=== PATIENT | female | born 1990 | race Caucasian/White ===

== ENCOUNTER 2016-09-05 14:12 | Emergency (ER) | payer OTHER ==
[2016-09-05 14:17] VITALS: BP 120/73; BMI 25.7
[2016-09-05 14:52] LABS: BILIRUBIN,URINE NEGATIVE (NEGATIVE); BLOOD/HEMOGLOBIN,URINE NEGATIVE (NEGATIVE); GLUCOSE, URINE NEGATIVE (NEGATIVE); KETONES,URINE NEGATIVE (NEGATIVE); LEUKOCYTE ESTERASE ,URINE NEGATIVE (NEGATIVE); NITRITES,URINE NEGATIVE (NEGATIVE); PROTEIN,URINE NEGATIVE (NEGATIVE); UROBILINOGEN,URINE NORMAL (NORMAL)
[2016-09-05 14:54] LABS: APPEARANCE,URINE CLEAR (CLEAR); COLOR,URINE PALE YELLOW (YELLOW)
== END 2016-09-05 15:14 | disposition home or self-care (01) ==
LOC: ER 14:34
DX: M54.5 Low back pain (principal); Z3A.30 30 weeks gestation of pregnancy
CPT/HCPCS: 81003; 99284

== ENCOUNTER → 2016-11-01 | Outpatient (CLI) | payer OTHER ==
[2016-11-01 10:08] LABS: BASOPHILS % (AUTO) 0.3 % (0.2-1.0); EOSINOPHILS % (AUTO) 0.6 % (0.9-2.9); HEMATOCRIT 33.4 % (36.0-47.0); HEMOGLOBIN 11.1 g/dL (12.0-16.0); LYMPHOCYTES # (AUTO) 1.9 X10^3/uL (1.3-2.9); LYMPHOCYTES % (AUTO) 27.9 % (21.0-51.0); MEAN CORPUSCULAR HEMOGLOBIN 27.6 pg (27.0-34.0); MEAN CORPUSCULAR HGB CONC 33.2 g/dL (33.0-35.0); MEAN CORPUSCULAR VOLUME 83.2 fL (80.0-100.0); MEAN PLATELET VOLUME 9.8 fL (7.4-11.0); MONOCYTES # (AUTO) 0.7 x10^3/uL (0.3-0.8); MONOCYTES % (AUTO) 9.9 % (0.0-13.0); NEUTROPHILS # (AUTO) 4.1 x10^3/uL (2.2-4.8); NEUTROPHILS % (AUTO) 61.3 % (42.0-75.0); PLATELET COUNT 119 X10^3/uL (150.0-450.0); RED BLOOD COUNT 4.02 X10^6/uL (3.5-5.4); RED CELL DISTRIBUTION WIDTH 16.8 % (11.6-16.5); WHITE BLOOD COUNT 6.7 X10^3/uL (3.6-10.0)
[2016-11-01 10:11] LABS: BILIRUBIN,URINE NEGATIVE (NEGATIVE); BLOOD/HEMOGLOBIN,URINE NEGATIVE (NEGATIVE); GLUCOSE, URINE NEGATIVE (NEGATIVE); KETONES,URINE NEGATIVE (NEGATIVE); LEUKOCYTE ESTERASE ,URINE NEGATIVE (NEGATIVE); NITRITES,URINE NEGATIVE (NEGATIVE); PROTEIN,URINE NEGATIVE (NEGATIVE); UROBILINOGEN,URINE NORMAL (NORMAL)
[2016-11-01 10:15] LABS: BLOOD UREA NITROGEN 7 mg/dL (7-18); CALCIUM 8.7 mg/dL (8.5-10.1); CARBON DIOXIDE 23.6 mmol/L (21-32); CHLORIDE 103 mmol/L (98-107); CREATININE 0.54 mg/dL (0.55-1.02); SODIUM 136 mmol/L (136-145); eGFR BLACK RACES > 60 (>60); eGFR NON BLACK RACES > 60 (>60)
[2016-11-01 10:19] LABS: APPEARANCE,URINE CLEAR (CLEAR); BACTERIA,URINE TRACE /HPF (NEGATIVE); COLOR,URINE YELLOW (YELLOW); RBC,URINE 0-2 /HPF (NEGATIVE); SQUAMOUS EPITHELIAL CELL,UR NEGATIVE /HPF (NEGATIVE)
== END ==
LOC: LAB 09:14
PROVIDERS: ATTEND Specialist
DX: Z01.818 Encounter for other preprocedural examination (principal); Z01.812 Encounter for preprocedural laboratory examination; Z34.83 Encounter for supervision of other normal pregnancy, third trimester
CPT/HCPCS: 36415; 80048; 81001; 85025; 85610; 85730; 86592; 86850; 86900; 86901; 87086

== ENCOUNTER 2016-11-02 06:19 | Inpatient (IN) | payer OTHER ==
[2016-11-02] MEDS ORDERED: ANCEF VIAL 1 GM ONE ×2 (06:40→07:21)
[2016-11-02] MEDS ORDERED: LR 1000 ML IV 1,000 ML IV ONE ×2 (06:40→07:36)
[2016-11-02] MEDS ORDERED: NS 50 ML IV + SPIKE MINIBAG* 50 ML IV ONE ×2 (06:40→07:21)
[2016-11-02] MEDS ORDERED: DURAMORPH ONE (06:51)
[2016-11-02] MEDS ORDERED: NS IRRIGATION 1000 ML 1,000 ML IR ONE (08:20)
[2016-11-02 08:28] LABS: BILIRUBIN,URINE NEGATIVE (NEGATIVE); BLOOD/HEMOGLOBIN,URINE NEGATIVE (NEGATIVE); GLUCOSE, URINE NEGATIVE (NEGATIVE); KETONES,URINE NEGATIVE (NEGATIVE); LEUKOCYTE ESTERASE ,URINE NEGATIVE (NEGATIVE); NITRITES,URINE NEGATIVE (NEGATIVE); PROTEIN,URINE NEGATIVE (NEGATIVE); UROBILINOGEN,URINE NORMAL (NORMAL)
[2016-11-02 08:36] LABS: APPEARANCE,URINE CLEAR (CLEAR); BACTERIA,URINE NEGATIVE /HPF (NEGATIVE); COLOR,URINE YELLOW (YELLOW); RBC,URINE 0-2 /HPF (NEGATIVE); SQUAMOUS EPITHELIAL CELL,UR RARE /HPF (NEGATIVE)
[2016-11-02] MEDS ORDERED: DILAUDID INJ IVP PRN (09:01)
[2016-11-02] MEDS ORDERED: D5 1/2 NS 1000 ML 1,000 ML IV SCH (09:01)
[2016-11-02] MEDS ORDERED: ANCEF VIAL 1 GM 1 GM in NS 50 ML IV + SPIKE MINIBAG* 50 ML IV PRN (09:01)
[2016-11-02] MEDS ORDERED: REGLAN INJ 10 MG VIAL IVP PRN ×2 (09:01→09:57)
[2016-11-02] MEDS ORDERED: BENADRYL INJ 50 MG VIAL IVP PRN ×2 (09:01→09:57)
[2016-11-02] MEDS ORDERED: ZOFRAN INJ 4 MG VIAL IVP PRN ×2 (09:01→09:57)
[2016-11-02] MEDS ORDERED: PHENERGAN INJ 25 MG IVP PRN (09:01)
[2016-11-02] MEDS ORDERED: ADACEL TDaP IM ONE (09:57)
[2016-11-02] MEDS ORDERED: TORADOL 30 MG VIAL IVP PRN (09:57)
[2016-11-02] MEDS ORDERED: PERCOCET TAB 5/325 MG PO PRN (09:57)
[2016-11-02] MEDS ORDERED: NARCAN INJ IVP PRN (09:57)
[2016-11-02] MEDS ORDERED: D5 1/2 NS 1000 ML 1,000 ML with PITOCIN 20 UNITS IV SCH ×2 (10:00)
[2016-11-02] MEDS ORDERED: VERSED ONE (14:40)
[2016-11-02] MEDS ORDERED: DIPRIVAN VIAL ONE (14:40)
[2016-11-02] MEDS ORDERED: PITOCIN ONE (14:40)
[2016-11-02] MEDS: ZANTAC PO SCH (20:17)
[2016-11-02] MEDS: MYLICON TAB 80 MG CHEW PO PRN (20:17)
[2016-11-03 05:08] LABS: HEMATOCRIT 26.9 % (36.0-47.0)
[2016-11-03] MEDS ORDERED: MOTRIN TAB 800 MG PO PRN (07:17)
[2016-11-03] MEDS: PERCOCET TAB 5/325 MG PO PRN ×3 (08:51→20:38)
[2016-11-03] MEDS: ZANTAC PO SCH ×2 (08:52→20:39)
[2016-11-03] MEDS: FERROUS SULFATE PO SCH ×2 (08:52→17:59)
[2016-11-03] MEDS: COLACE CAP 100 MG PO SCH ×2 (08:52→20:39)
[2016-11-03] MEDS: PRENATAL PLUS PO SCH (08:52)
[2016-11-03] MEDS: BACTROBAN OINT TOP SCH ×2 (14:59→22:49)
[2016-11-03] MEDS: MYLICON TAB 80 MG CHEW PO PRN (20:39)
[2016-11-04] MEDS: BACTROBAN OINT TOP SCH (05:36)
[2016-11-04] MEDS: FERROUS SULFATE PO SCH (06:02)
[2016-11-04] MEDS: ZANTAC PO SCH (09:04)
[2016-11-04] MEDS: PRENATAL PLUS PO SCH (09:04)
[2016-11-04] MEDS: COLACE CAP 100 MG PO SCH (09:04)
[2016-11-04 10:27] VITALS: BP 108/51
== END 2016-11-04 10:55 | disposition home or self-care (01) | DRG 766 ==
LOC: LD 06:19 → MED/SURG 09:21
PROVIDERS: ADMIT Specialist; ATTEND Specialist
PROC: 0UB70ZZ Excision of Bilateral Fallopian Tubes, Open Approach (ICD-10-PCS; 2016-11-02)
PROC: 3E0234Z Introduction of Serum, Toxoid and Vaccine into Muscle, Percutaneous Approach (ICD-10-PCS; 2016-11-02)
PROC: 10D00Z1 Extraction of Products of Conception, Low, Open Approach (ICD-10-PCS; principal; 2016-11-02 07:30)
DX: O34.211 Maternal care for low transverse scar from previous cesarean delivery (principal); Z37.0 Single live birth; Z30.2 Encounter for sterilization; Z3A.39 39 weeks gestation of pregnancy; N85.8 Other specified noninflammatory disorders of uterus
CPT/HCPCS: 36415; 80048; 80307; 81001; 85014; 85018; 85025; 85610; 85730; 86592; 86850; 86900; 86901; 87086; 94640; A4222; S0197; G0434; J0690; J1885; J2250; J2590; J3490; J7120